=== PATIENT | male | born 1925 | race Caucasian/White ===

== ENCOUNTER 2017-01-28 19:30 | Observation (INO) | payer MEDICARE, OTHER ==
[~2017-01-28] VITALS: Ht 172.7 cm; Wt 65.9 kg
--- NOTE | ~2017-01-28 | DS ---
PATIENT:STANLEY MAGUIRE :[birth year] MEDICAL RECORD: [id number] DISCHARGE SUMMARY ADMISSION DATE: 01/28/17 DISCHARGE DATE: 01/30/17 DATE OF ADMISSION: 01/28/2017. DATE OF DISCHARGE: 01/30/2017. PROBLEM LIST: 1. Acute myocardial infarction. 2. Advanced age. PROCEDURE PERFORMED: 1. Left heart catheterization. 2. Stenting to the right coronary. BRIEF HISTORY AND HOSPITAL COURSE: Transferred from [place] with acute coronary syndrome/non ST elevation myocardial infarction, underwent stenting to the right coronary. LV function was in the 40-45% range. However, pressures too low for JESSICA inhibitor or beta blockade. Given age did not start statin, will be on Plavix for a month, aspirin indefinitely. He will be seen back in the office in a month. TRANSINT:[id number] Voice Confirmation ID: [id number] DOCUMENT ID: [id number] GABINO CERVANTES MD CC: [id number] DICTATION DATE: 01/30/17905 CONTENT PRODUCTION SPECIALIST: 01/31/17 06 DIS IN 01/30/[address] [address]
--- NOTE | ~2017-01-28 | OP ---
PATIENT NAME: STANLEY MAGUIRE MEDICAL RECORD: [id number] :[birth year] LOCATION:D.M2 D.2121 ADMISSION DATE:01/28/17 SURGEON: GABINO CERVANTES MD DATE OF OPERATION: 01/29/2017 PROCEDURE: Left heart catheterization, selective coronary angiography, right femoral artery approach. CATHETERS: A 5-Nauruan sheath, 5/4 left and right Opal, 5/4 pig. The procedure was well tolerated. The patient returned to the jackson, sheath removed. ExoSeal device was placed. FINDINGS: Left ventriculography in 30-degree FRANCOIS view shows anterior and inferior apical hypokinesis. Overall, function reduced 40%. CORONARY ANATOMY: Left main: Left main is free of disease. LAD: Lad has a proximal stenosis of 80%. CIRCUMFLEX: Free of disease. RIGHT CORONARY ARTERY: Totally occluded, obviously infarct-related artery. PLAN: Intervention of this vessel momentarily. DESCRIPTION: A 5-Nauruan sheath was changed for a long 6-Nauruan sheath. A hockey stick guide catheter provided good guide catheter support followed by a 300 cm Whisper wire was placed across totally occluded right down this portion of vessel. Pre-deployment balloon was a 3.0 x 15 mm [place], placed up and down area of total occlusion, stent deployed was a 3.5 x 22 mm Integrity nondrug-eluting stent up to 14 atmospheres. Final injection shows excellent resolution to no significant residual. ANA flow was 3 at the end of procedure, improving from 0. Hematoma was noted at the end of the case and FemoStop was placed. Plavix had previously been loaded. Intervention of the LAD for recurrent angina only. TRANSINT:[id number] Voice Confirmation ID: [id number] DOCUMENT ID: [id number] GABINO CERVANTES MD CC: [id number] DICTATION DATE: 01/29/17 0950 TRANSFER PUMPER: 01/29/17 1057 ADM IN [place] [id number] [place] [address]
--- NOTE | ~2017-01-28 | HP ---
PATIENT: STANLEY MAGUIRE MEDICAL RECORD: [id number] ACCOUNT: [id number] LOCATION:[address] : [birth year] ADMISSION DATE: 01/28/17 HISTORY AND PHYSICAL EXAMINATION HISTORY OF PRESENT ILLNESS: 89-year-old gentleman with no known history of coronary artery disease, actually he is extremely healthy 89 years of age, active in judaism. Does some yard work, onset of chest pain and pressure, found to have elevated cardiac enzymes at [place], was transferred here for further evaluation. Currently pain free. ECG shows nonspecific ST-T changes. Enzymes risen further. Still with some chest tightness and pressure. Plan for angiography, intervention based on above. PAST MEDICAL HISTORY: 1. History of osteoarthritis. 2. Gastroesophageal reflux disease. ALLERGIES: None known. MEDICATIONS: Prevacid 30 mg p.o. q.h.s. only. SOCIAL HISTORY: He lives [place], was born and raised. Nonsmoker and nondrinker. Easily takes care of all ADLs. REVIEW OF SYSTEMS: The patient reports easy bruising but reports no swollen glands. The patient reports no fever, no night sweats, no significant weight gain, no significant weight loss. No significant exercise tolerance. The patient reports no dry eyes, no irritation, no vision change. Patient reports no difficulty hearing and no ear pain. Patient reports no frequent nose bleeds or nose and sinus problems. Patient reports on arm pain on exertion. No shortness of breath while lying down. No history of heart murmur. Patient reports no cough, no wheezing or coughing up blood. Patient reports no abdominal pain, no vomiting. Normal appetite. No diarrhea and not vomiting blood. No nausea and no constipation. Patient reports no incontinence. No difficulty urinating. No hematuria. No increased frequency. Patient reports no muscle aches. No weakness, no arthralgias, no back pain. No swelling of the extremities. Patient reports no abnormal mole, no jaundice, no rashes. Reports no loss of consciousness. No weakness and no numbness. No seizures, dizziness, or headaches. The patient reports no depression, no sleep disturbance, feeling safe in a relationship and no alcohol abuse. Patient reports on fatigue. Reports no runny nose or sinus pressure. No itching, no hives, and no frequent sneezing. PHYSICAL EXAMINATION: GENERAL: Pleasant gentleman in no acute distress. VITAL SIGNS: Blood pressure 109/66, pulse 78 and regular. HEENT: Normocephalic, atraumatic. NECK: No bruits noted. HEART: Regular. A 2-3/6 systolic ejection murmur. LUNGS: Actually fairly good air excursion. ABDOMEN: Soft, nontender. EXTREMITIES: Pulse 2+ with no edema. NEUROLOGIC: Grossly intact. DIAGNOSTIC DATA: ECG shows nonspecific ST-T changes. HISTORY AND PHYSICAL [id number] STANLEY MAGUIRE IMPRESSION: Acute coronary artery syndrome. PLAN: Diagnostic angiography and intervention based on above. TRANSINT:[id number] Voice Confirmation ID: [id number] DOCUMENT ID: [id number] GABINO CERVANTES MD CC: [id number] DICTATION DATE: 01/29/17837 MANAGER MOBILITY: 01/29/17928 ADM IN [place] [id number] [place] [id number]
--- NOTE | ~2017-01-28 | HEMODYNAMI ---
PATIENT:STANLEY MAGUIRE MEDICAL RECORD: [id number] : [birth year] [facility] D.2121 [id number] ADMISSION DATE: 01/28/17 Generatedon:01/29/20179:48 Patient name: STANLEY MAGUIRE Patient #: [id number] : 1925 Date of study: 01/29/2017 Page: Of Hemodynamic Procedure Report Patient Data Patient Demographics Procedure consent was obtained First Name: STANLEY Gender: Male Last Name: TING : 1925 Middle Initial: A Age: 89 year(s) Patient #: [id number] Race: Unknown SSN: [id number] Additional ID: [id number] Contact details Address: [address] [place] [address] State: [place] City: [place] Zip code: [address] Past Medical History Allergies: No known allergies Admission Admission Data Admission Date: 01/28/2017 Admission Time: 19:30 Arrival Date: 01/29/2017 Arrival Time: 19:30 Admit Source: Other Insurance Payor: Medicare Room #: D.2121 Height (in.): 68 BSA: 1.79 (m2) Height (cm.): 172.72 BMI: 22.12 (kg/m2) Weight (lbs.): 145.51 Weight (kg.): 66 Procedure Procedure Types Cath Procedure Diagnostic Procedure [facility] w/Coronaries PCI Procedure Coronary Stent Initial Miscellaneous Procedures Moderate Sedation up to 45 minutes Procedure Description Procedure Date Procedure Date: 01/29/2017 Procedure Start Time: 9:03 Procedure End Time: 9:35 Procedure Staff Name Function Bill Loomis MD Performing Physician Olinda rCockett RT Scrub Damien Harper RN Nurse Denise Gonzalez RT Monitor Indication Angina Procedure Data Cath Procedure Fluoroscopy Diagnostic fluoroscopy Total fluoroscopy Time: 9.7 time: 9.7 min min Diagnostic fluoroscopy Total fluoroscopy dose: 874 dose: 874 mGy mGy Contrast Material Contrast Material Type Amount (ml) Isovue 370 99 Entry Location Entry Primary Successful Side Size Upsize Upsize Entry Closure Succes sful Closure Location (Fr) 1 (Fr) 2 (Fr) Remarks Device Remarks Femoral Right 5 Fr 6 Fr 6 Fr Exoseal artery Long Short Estimated blood loss: 5 ml Diagnostic catheters Device Type Used For End Catheter Placement Cordis 5Fr JL 4.0 Left Coronary Catheter (MP) Angiography Cordis 5Fr JL 4.0 Left Coronary Catheter (MP) Angiography Diagnostic Infinity 5Fr Left Coronary JL 5 catheter Angiography Cordis 5Fr 3DRC Catheter Right Coronary (MP) Angiography Cordis 5Fr Pigtail LV Angiography Catheter (MP) Procedure Complications No complications Procedure Medications Medication Administration Route Dosage Oxygen NC 2 l/min Lidocaine 2% added to field 20 Heparin Flush Bag added to field 2 bags (1000units/500ml NS) 0.9% NaCl I.V. 100 ml/hr Versed I.V. 0.5 mg Fentanyl I.V. 25 mcg Heparin Bolus I.V. 4000 units Versed I.V. 0.5 mg Fentanyl I.V. 25 mcg Plavix P.O. 75 mg Hemodynamics Rest BSA: 1.79 (m2) O2 Consumption: Estimated: 204.56 (ml/min) O2 Consumption indexed : Estimated:114.28 (ml/min/m) Heart Rate: 73 (bpm) Pressure Samples Time Site Value (mmHg) Purpose Heart Use Rate(bpm) 9:17 LV 94/3,3 Snapshot 61 9:17 AO 111/61(82) Pullback 74 9:17 LV 103/4,3 Pullback 74 Gradients Valve Time Site 1 Site 2 Mean SEP/DFP Peak To Heart Use (mmHg) (sec/min) Peak Rate (mmHg) (bpm) Aortic 9:17 LV AO 0 74 103/4,3 111/61(82) Calculations Valve P-P Mean Valve Index Valve Source Name Gradient Area Flow (cm2) Aortic 0 0 Snapshots Pre Cath Intra NCS Post Cath Vital Signs Time Heart Resp SPO2 etCO2 [id number] NIBP Rhythm Pain Sedation Rate (ipm) (%) (mmHg) (mmHg) (mmHg) Status Level (bpm) 8:43:37 76 27 97 0 0 111/69(89) NSR 0 (11) 10(A) , No pain 8:47:41 73 23 96 0 0 114/76(96) NSR 0 (11) 10(A) , No pain 8:51:07 75 21 96 0 0 115/74(94) NSR 0 (11) 10(A) , No pain 8:55:15 74 16 97 0 0 108/68(87) NSR 0 (11) 10(A) , No pain 8:59:19 72 21 95 0 0 103/70(85) NSR 0 (11) 10(A) , No pain 9:03:23 70 19 95 0 0 110/70(89) NSR 0 (11) 9(A) , No pain 9:07:29 72 20 95 0 0 112/69(91) NSR 0 (11) 9(A) , No pain 9:11:37 71 19 97 0 0 108/68(82) NSR 0 (11) 9(A) , No pain 9:15:42 75 21 97 0 0 112/68(93) NSR 0 (11) 9(A) , No pain 9:19:50 72 17 99 0 0 113/64(87) NSR 0 (11) 9(A) , No pain 9:23:58 72 19 97 0 0 113/66(83) NSR 0 (11) 9(A) , No pain 9:28:06 70 20 96 0 0 107/70(89) NSR 0 (11) 9(A) , No pain 9:32:11 70 21 97 0 0 104/66(85) NSR 0 (11) 10(A) , No pain Medications Time Medication Route Dose Verified Delivered Reason Notes Effectiveness by by 8:50:39 Oxygen NC 2 Bill Quezada used for l/min [facility] Dion marshall MD 8:50:48 Lidocaine 2% added 20ml Bill Khan for local to vial [facility] anesthetic field MD WARREN 8:50:56 Heparin Flush added 2 Bill Bill used for Bag to bags [facility] procedure (1000units/500ml field MD WARREN NS) 8:51:06 0.9% NaCl I.V. 100 Bill Bethie Per physician ml/hr [facility]. Dion Harper RN, MD 9:01:52 Versed I.V. 0.5 Bill Bethie for sedation mg [facility]. Dion Harper RN, MD 9:01:58 Fentanyl I.V. 25 Bill Buffie for sedation mcg [facility] Dion Harper RN, MD 9:18:16 Heparin Bolus I.V. 4000 Bill Quezada for verifie d units [facility]. Dion Harper RN anticoagulation with dr MD sullivan 9:27:43 Versed I.V. 0.5 Bill Quezada for sedation mg [facility]. Dion Harper RN, MD 9:27:48 Fentanyl I.V. 25 Bill Quezada for sedation mcg [facility]. Dion Harper RN, MD 9:43:04 Plavix P.O. 75 mg Bill Quezada for St. Doin Harper RN antiplatelet therapy Procedure Log Time Note 8:11:08 Arrival Date: 01/29/2017 7:30:00 PM 8:14:26 Admit Source: Other 8:15:27 Insurance Payor : Medicare 8:24:00 Diagnostic Cath Status : Elective 8:24:33 Indication : Angina 8:24:46 Damien Harper RN sent for patient. Start room use. 8:24:48 Time tracking: Regular hours 8:24:54 Plan of Care:Hemodynamics will remain stable., Cardiac rhythm will remain stable., Comfort level will be maintained., Respiratory function will remain adequate., Patient/ family verbilizes understanding of procedure., Procedure tolerated without complication., Recovers from procedure without complications.. 8:42:20 Patient received from Med II to CCL 1 Alert and oriented. Tansferred to table in Supine position. 8:42:21 Warm blankets applied, and salvador hugger turned on for patient comfort. 8:42:22 Correct patient and procedure confirmed by team. 8:42:24 Signed procedure consent form obtained from patient. 8:42:26 ECG and BP/O2 sat monitors applied to patient. 8:42:27 Vital chart was started 8:42:28 Baseline sample Acquired. 8:42:32 Rhythm: sinus rhythm 8:42:35 Full Disclosure recording started 8:42:42 H&P Date Dictated: 01/28/2017 Within 30 days and on chart.. 8:42:45 Pre-procedure instructions explained to patient. 8:42:47 Family in patients room. 8:42:49 Patient NPO since Midnight. 8:42:57 Patient allergic to No known allergies 8:43:00 Is the patient allergic to Iodine/contrast media? No. 8:43:02 Is patient on blood thinner?Yes 8:43:07 ACC The patient was administered the following blood thiners within the last 24 hours: ACCPlavix 8:43:10 Patient diabetic? No. 8:43:15 Snore? No 8:43:16 Sleep apnea? No 8:43:42 Airway obstruction? No right nostril swells and he uses a nasal spray at night 8:43:57 Dentures? Yes top in tight/bottoms out 8:44:31 Patient pain scale 2/10 soreness. 8:44:39 IV patent on arrival in right forearm with 0.9% NaCl at [facility]. 8:44:50 Right groin area was prepped with chlora-prep and draped in sterile fashion 8:44:59 Alarms reviewed by R. N. 8:45:00 Sharps counted by scrub and verified by RAmiraN. 8:45:01 Physician paged 8:50:39 Oxygen 2 l/min NC was administered by Damien Harper RN; used for procedure; 8:50:48 Lidocaine 2% 20ml vial added to field was administered by Bill Loomis MD; for local anesthetic; 8:50:56 Heparin Flush Bag (1000units/500ml NS) 2 bags added to field was administered by Bill Loomis MD; used for procedure; 8:51:06 0.9% NaCl 100 ml/hr I.V. was administered by aDmien Harper RN; Per physician; 8:52:07 Patient Weight : 145.51 kg 8:52:35 Patient Height : 68 cm 8:58:50 Physician arrived 8:58:50 --------ALL STOP TIME OUT------ 8:58:51 Final Timeout: patient, procedure, and site verified with staff and physician. All members of the team are in agreement. 8:59:03 Right groin site verified by team. 8:59:09 Physical assessment completed. ASA score P 2 - A patient with mild systemic disease as per Bill Loomis MD. 8:59:13 Sedation plan: IV Moderate Sedation Versed, Fentanyl 8:59:40 Use device set Femoral Dx 8:59:41 Acist Syringe opened to sterile field. 8:59:42 Bag Decanter opened to sterile field. 8:59:42 Medline Cath Pack opened to sterile field. 8:59:42 Terumo 5Fr [place] Sheath opened to sterile field. 8:59:43 St Hever 260cm J .035 wire opened to sterile field. 8:59:44 Acist Hand Control opened to sterile field. 8:59:45 Acist Manifold opened to sterile field. 8:59:45 Diagnostic Infinity 5Fr Multipack catheter opened to sterile field. 8:59:45 Tegaderm 4 x 4 opened to sterile field. 9:01:52 Versed 0.5 mg I.V. was administered by Damien Harper RN; for sedation; 9:01:58 Fentanyl 25 mcg I.V. was administered by Damien Harper RN; for sedation; 9:03:41 Procedure started. 9:03:51 Local anesthetic to right femoral artery with Lidocaine 2% by Bill Loomis MD.INITIAL ACCESS ONLY 9:04:02 A 5 Fr sheath was inserted into the Right Femoral artery 9:04:41 A Cordis 5Fr JL 4.0 Catheter (MP) was advanced over the wire and used for Left Coronary Angiography. 9:04:45 Zero performed for pressure channel P1 9:04:49 Zero performed for pressure channel P1 9:04:57 Zero performed for pressure channel P1 9:07:31 Catheter removed. unable to get back-up support 9:07:34 Terumo 6Fr [place] Destination Sheath opened to sterile field. 9:07:46 Sheath upsized to a 6 Fr Long. 9:08:00 A Cordis 5Fr JL 4.0 Catheter (MP) was advanced over the wire and used for Left Coronary Angiography. 9:10:22 Catheter removed. unable to cannulate vessel. 9:10:49 A Diagnostic Infinity 5Fr JL 5 catheter was advanced over the wire and used for Left Coronary Angiography. 9:11:40 LCA angiography performed. 9:11:43 Injector settings: Ml/sec: 3, Volume: 6, 9:12:52 Catheter removed. 9:13:59 A Cordis 5Fr 3DRC Catheter (MP) was advanced over the wire and used for Right Coronary Angiography. 9:15:28 RCA angiography performed. 9:15:31 Injector settings: Ml/sec: 3, Volume: 6, 9:15:47 Catheter removed. 9:16:13 A Cordis 5Fr Pigtail Catheter (MP) was advanced over the wire and used for LV Angiography. 9:16:44 [place] [employer] BasixCompak Inflation Kit opened to sterile field. 9:16:45 Patel Whisper J 300cm 0.014 guide wire opened to sterile field. 9:17:14 LV hemodynamics recorded. 9:17:15 LV gram done using FRANCOIS 9:17:18 Injector settings: Ml/sec: 5, Volume: 15, 9:17:26 EF : 40 % 9:17:39 Catheter removed. 9:17:50 Medtronic Launcher 6Fr HS II guide catheter opened to sterile field. 9:18:02 Proceeding to intervention. 9:18:16 Heparin Bolus 4000 units I.V. was administered by Damien Harper RN; for anticoagulation; verified with dr sullivan 9:18:29 6 Fr hs 2 guide catheter was inserted over the wire 9:18:35 Affinion Groupisper wire advanced. 9:22:44 Inflation number: 1 A [place] Sci [place] 3.0 X 15 balloon was prepped and advanced across the Dist RCA, then inflated to 10 HIMA for 0:30 (min:sec). 9:23:31 Inflation number: 2 The Argonia Sci [place] 3.0 X 15 balloon was reinflated across the Dist RCA, to 10 HIMA for 0:30 (min:sec). 9:23:54 Inflation number: 3 The [place] Sci [place] 3.0 X 15 balloon was reinflated across the Dist RCA, to 10 HIMA for 0:10 (min:sec). 9:26:26 Balloon removed over the wire. 9:27:43 Versed 0.5 mg I.V. was administered by Damien Harper RN; for sedation; 9:27:48 Fentanyl 25 mcg I.V. was administered by Damien Harper RN; for sedation; 9:31:32 Inflation Number: 4 A Medtronic Integrity 3.5 X 22 stent was prepped and advanced across the Dist RCA. The stent was deployed at 14 HIMA for 0:30 (min:sec). 9:31:40 Stent catheter was removed intact over wire. 9:31:41 Wire removed. 9:31:42 Guide catheter removed. 9:31:56 Terumo 6Fr [place] Sheath opened to sterile field. 9:31:57 Cordis 6Fr Exoseal opened to sterile field. 9:32:09 Sheath upsized to a 6 Fr Short. 9:32:23 Sheath removed intact; hemostasis achieved with Exoseal to the Right Femoral artery. 9:32:26 Procedure ended.(Physican Out) 9:32:53 Fluoroscopy time 09.70 minutes. 9:33:47 Fluoroscopy dose: 874 mGy 9:33:47 Flurop Dose total: 874 9:33:54 Contrast amount:Isovue 370 99ml. 9:33:55 Sharps counted by scrub and verified by R.N. 9:33:57 Insertion/operative site no bleeding no hematoma. 9:34:00 Post-op/insertion site Right Femoral artery dressed using a 4 x 4 and Tegaderm. 9:34:03 Post right femoral artery:stable 9:34:05 Post Procedure Pulses reassessed and unchanged 9:34:14 Post procedure rhythm: unchanged. 9:34:18 Estimated blood loss: 5 ml 9:34:21 Post procedure instruction explained to patient.Patient verbalizes understanding. 9:34:21 Patient needs reinforcement of post procedure teaching. 9:34:52 Procedure type changed to Cath procedure, Diagnostic procedure, LHC, LHC w/Coronaries, PCI procedure, Coronary Stent Initial, Miscellaneous Procedures, Moderate Sedation up to 45 minutes 9:34:54 Procedure and supply charges have been captured, reviewed, submitted and are correct. 9:34:58 Procedure Complication : No complications 9:35:01 Vital chart was stopped 9:35:01 See physician's report for complete and final results. 9:35:04 Report given to [facility]. 9:35:07 Patient transfered to [facility] with Stretcher. 9:35:09 Procedure ended. 9:35:09 Full Disclosure recording stopped 9:35:17 ACC-PCI Only Patient was given prescriptions, or instructed by Bill Loomis MD to start/continue the following medications upon discharge: Plavix 9:35:19 End room use (Document Last) 9:43:04 Plavix 75 mg P.O. was administered by Damien Harper RN; for antiplatelet therapy; Intervention Summary Intervention Notes Time ActionType Lesion and Equipment Action# Pressure Duration Attributes Used 9:22:44 Inflate Dist RCA [place] 1 10 00:30 balloon Sci [place] 3.0 X 15 balloon 9:23:31 Reinflate Dist RCA [place] 2 10 00:30 balloon Sci [place] 3.0 X 15 balloon 9:23:54 Reinflate Dist RCA [place] 3 10 00:10 balloon Sci [place] 3.0 X 15 balloon 9:31:32 Place stent Dist RCA Medtronic 4 14 00:30 Integrity 3.5 X 22 stent Device Usage Item Name Manufacture Quantity Catalog Number Hospital Part Current Mini mal Lot# / Charge Number Stock Stock Serial# Code Acist Acist 1 [id number] 198259 454263 021491 20 Syringe Medical Systems Inc Bag Microtek 1 [id number] 486080 77330 524813 5 Decanter Medical Inc. Medline Cardinal 1 [id number] 684453 55247 554193 5 Cath Pack Health Terumo 5Fr Terumo 1 [id number] 676685 783259 540782 [address] [address] [facility] 1 [id number] 208640 129701 633901 30 260cm J .035 wire Acist Hand Acist 1 41034 906760 926318 516578 5 Mirapoint Software Medical Systems Inc Acist Acist 1 75552 994908 335015 495989 5 Plum (Formerly Ube) Medical Systems Inc Diagnostic Cardinal 1 [id number] 021294 31443 829470 30 Infinity Health 5Fr Multipack catheter Tegaderm 4 3M 1 1626W 321403 087957 014279 5 x 4 Cordis 5Fr Cardinal 1 180915 5 JL 4.0 Health Catheter (MP) Terumo 6Fr Terumo 1 [id number] 694871 52096 467773 5 [place] Destination Sheath Diagnostic Cardinal 1 [id number] 457080 965448 964385 5 Infinity Health 5Fr JL 5 catheter Cordis 5Fr Cardinal 1 198517 5 3DRC Health Catheter (MP) Cordis 5Fr Cardinal 1 121362 5 Pigtail Health Catheter (MP) Merit Merit 1 [id number] 614839 219483 139685 15 BasixKingX Studiosk Medical Inflation Kit Patel Patel 1 [id number] 390374 985226 378079 5 Whisper J Vascular 300cm 0.014 guide wire Medtronic Medtronic 1 [id number] 689308 73907 138305 1 Launcher 6Fr HS II guide catheter Argonia Sci Argonia 1 [id number] 442473 099906 067736 1 [id number] [place] Scientific 3.0 X 15 balloon Medtronic Medtronic 1 [id number] 641573 837292 1 [id number] Integrity 3.5 X 22 stent Terumo 6Fr Terumo 1 [id number] 602720 880819 794292 40 [place] Sheath Cordis 6Fr Cardinal 1 EX600 335843 965106 768708 10 [facility] Signature Audit [place] Stage Time Signature Unsigned Intra-Procedure 01/29/2017 Denise Gonzalez 9:48:23 AM RT(R) Signatures Monitor : Denise Gonzalez RT Signature : Date : Time : [place] [id number] [place] [address]
[2017-01-28] MEDS ORDERED: PREVACID30 MG PO (20:33)
--- NOTE | 2017-01-28 20:58 | NUR ---
PT ADMITTED TO UNIT FROM [facility] VIA TRANSFER AT 1915. BROUGHT BY AMBULANCE AND ON STRETCHER. ADMISSION ASSESSMENT AND HISTORY COMPLETED. HOME MEDS REVIEWED. PHONE CALL TO DR CERVANTES. REPORT GIVEN. PT SR WITH BBB ON TELEMETRY. NO CURRENT CHEST PAIN. ORDERS RECIEVED.
[2017-01-28 23:01] LABS: CKMB 52.1 U/L (0.0-3.6); CREATINE KINASE 293 UL (21-232)
[2017-01-28 23:07] LABS: TROPONIN-I 2.465 ng/mL (0.000-0.060)
[2017-01-28 23:30] VITALS: BP 109/73; Ht 172.7 cm; Wt 65.9 kg
--- NOTE | 2017-01-28 23:30 | NUR ---
NOTED INCREASE IN TROPONIN PER OUR LAB DRAW. CONTINUE TO MONITOR. SR WITH BBB PER TELEMETRY. DENYING PAIN OR DISCOMFORT.
[2017-01-29] VITALS: BP 109/73
--- NOTE | 2017-01-29 00:35 | NUR ---
SPOKE WITH DR CERVANTES AND REPORTED INITIAL SET OF CARDIAC ENZYMES AND THE NOTED ELEVATION SINCE DRAWN IN THE [facility]. ORDERS RECEIVED HEART CATH TO BE SCHEDULED FOR 0900 IN AM. RUFUS GOLDEN, NOTIFIED TO CALL CATH TEAM AT 0730 FOR A 0900 CATH.
--- NOTE | 2017-01-29 00:46 | NUR ---
NOTIFIED ISABELLE, LISTED NEXT OF KIN, THAT DR CERVANTES PLANS TO DO A CATH IN THE AM.
[2017-01-29 04:00] VITALS: BP 109/66
--- NOTE | 2017-01-29 04:16 | NUR ---
PT RESTING WITH NO SIGNS OF DISCOMFORT. SR PER TELEMETRY. NPO FOR AM HEART CATH.
[2017-01-29 07:39] LABS: ALBUMIN 3.1 g/dL (3.4-5.0); ALKALINE PHOSPHATASE 104 U/L (46-116); ALT (SGPT) 26 U/L (10-68); CALC OSMOLALITY 286 mosm/kg (275-300); CALCIUM 8.7 mg/dL (8.5-10.1); CHLORIDE - SERUM 106 mmol/L (98-107); CKMB 174.2 U/L (0.0-3.6); CREATININE - SERUM 1.6 mg/dL (0.6-1.3); GLUCOSE 92 mg/dL (74-106); POTASSIUM - SERUM 4.4 mmol/L (3.5-5.1); PROTEIN - SERUM 6.5 g/dL (6.4-8.2); SODIUM 141 mmol/L (136-145); UREA NITROGEN 28 mg/dL (7-18); eGFR NON AFRICAN AMERICAN 43 mL/min (90-120)
[2017-01-29 07:42] LABS: CREATINE KINASE 695 UL (21-232); TROPONIN-I 11.048 ng/mL (0.000-0.060)
[2017-01-29 08:00] VITALS: BP 94/58
--- NOTE | 2017-01-29 08:20 | NUR ---
PRE-OPS GIVEN. TO SUPERINTENDENT MARINE BY BED.
--- NOTE | 2017-01-29 10:07 | NUR ---
BACK FROM CATHLAB. VS WNL. RIGHT GROIN STABLE WITH FEMSTOP INTACT. WILL MONITOR.
--- NOTE | 2017-01-29 14:38 | NUR ---
FEMSTOP DCD WITHOPUT BLEEDING OR HEMATOMA NOTED.
--- NOTE | 2017-01-29 15:59 | NUR ---
BR UP. GROIN STABLE.
--- NOTE | 2017-01-29 19:52 | NUR ---
PT'S FAMILY X 2 EXITING SHIFT BEGINS. PT LYING WITH EYES CLOSED, ANSWERS AND OPENS EYES TO HIS NAME. ALERT/ORIENTED. STATES FEELING A LITTLE TIRED. SR PER TELEMETRY. NONLABORED RESPIRATIONS ON ROOM AIR. LHC DONE TODAY VIA RIGHT GROIN. SITE IS MARKED WHERE HE DID REQUIRE A FEMSTOP POST PROCEDURE AND HAS SOME SLIGHT BRUISING. DRESSING TO SITE IS C/D/I. NO BLEEDING OR SWELLING NOTED. SALINE LOCK TO LEFT A/C. CALL LIGHT IN REACH. NO PAIN OR DISCOMFORT VOICED. CPOC.
[2017-01-29 21:33] VITALS: BP 94/50
--- NOTE | 2017-01-29 21:48 | NUR ---
ASSISTED UP TO USE BATHROOM BY VOCATIONAL PSYCHOLOGIST. BACK TO BED. DENIES PAIN. CALL LIGHT IN REACH.
[2017-01-29 23:00] VITALS: BP 105/67
[2017-01-30 06:37] VITALS: BP 101/63
--- NOTE | 2017-01-30 07:40 | NUR ---
AWAKE NO DISTRESS. WANTS TO SIT IN CHAIR FOR BREAKFAST. MONITOR SHOWS SR @ 60
[2017-01-30 08:22] VITALS: BP 117/72
[2017-01-30] MEDS ORDERED: PLAVIX75 MG PO (09:56)
--- NOTE | 2017-01-30 10:45 | NUR ---
AWAKE AND SITTING UP IN CHAIR VISITING WITH FAMILY. NO APPARENT DISTRESS. DISCHARGE ORDER RECIEVED.
--- NOTE | 2017-01-30 10:54 | NUR ---
DISCHARGE INSTRUCTIONS GIVEN. IV REMOVED WITH TIP INTACT.
--- NOTE | 2017-01-30 11:13 | NUR ---
DISCHARGE HOME. TO CAR VIA .
== END 2017-01-30 11:15 | disposition home or self-care (01) ==
LOC: OBSVTIME 19:30 → D.M2 19:30
PROVIDERS: ADMIT Internal Medicine Interventional Cardiology
DX: I21.3 ST elevation (STEMI) myocardial infarction of unspecified site (principal); K21.9 Gastro-esophageal reflux disease without esophagitis; L76.32 Postprocedural hematoma of skin and subcutaneous tissue following other procedure; Y84.0 Cardiac catheterization as the cause of abnormal reaction of the patient, or of later complication, without mention of misadventure at the time of the procedure